=== PATIENT | male | born 1995 | race Caucasian/White ===

== ENCOUNTER 2020-06-01 10:47 | Emergency (ER) | payer OTHER, SELFPAY ==
[2020-06-01 10:55] VITALS: BP 138/90; PULSE 65; RESP 18; TEMP 36.9; O2SAT 100
--- NOTE | 2020-06-01 11:15 | ED.SKABFB ---
HPI - Skin/Abscess/Foreign Bdy General Chief complaint: Skin/Abscess/Foreign Body Stated complaint: sore on upper thigh Time Seen by Provider: 06/01/20 11:15 Source: patient Mode of arrival: ambulatory Limitations: no limitations History of Present Illness HPI narrative: Cash Calle is a 24 yo male with no PMH except for testicular removal on right for torsion at age 4, who comes to express care for 3x3 area L upper thigh that is coalesced red spots that are pruritic - notcied 3 days ago - remains unchanged Related Data Allergies Allergy/AdvReac Type Severity Reaction Status Date / Time No Known Allergies Allergy Verified 06/01/20 11:20 Review of Systems Review of Systems: Narrative: CONSTITUTIONAL: Denies fever, chills, sweats. EYES: Denies visual changes, redness, discharge. ENT: Denies rhinorrhea, congestion, sore throat, otalgia. CARDIOVASCULAR: Denies chest pain, palpitations, edema. RESPIRATORY: Denies dyspnea, wheezing, cough GASTROINTESTINAL: Denies abdominal pain, nausea, vomiting, diarrhea. GENITOURINARY: Denies dysuria, hematuria, abnormal discharge SKIN: Denies rash or itching. 3 x 3 area that is pruritic on left upper thigh NEUROLOGIC: Denies numbness, or focal weakness. PSYCHIATRIC: Denies anxiety or depression. [facility] Past Medical History Medical History Testicular torsion Family History Family History Other No active medical problems Social History Social History (Updated 06/01/20 @ 11:26 by Cecilia Carroll CNP) Smoking status: Never smoker Alcohol intake: never Comments At time of signature, I agree with nursing past medical, surgical, social and family history. There is no relevant family history pertinent to the presenting complaint. Exam Narrative: Exam Narrative: GENERAL: This is a well-nourished, well-developed patient, in no distress. HEAD: normocephalic, atraumatic. EYES: Sclera clear/white. Vision is grossly intact. EARS: External ears normal, Hearing grossly intact. NOSE: External nose normal without nasal discharge, nares without redness, no rhinorrhea. THROAT: Mucous membranes moist, NECK: Neck supple, CARDIOVASCULAR: Regular rate and rhythm without murmurs, gallops, or rubs. RESPIRATORY: Clear to auscultation. Breath sounds equal bilaterally. No wheezes, rales, or rhonchi. GASTROINTESTINAL: Abdomen soft, SKIN: warm, intact with 3x3 red papular rash with distinct blotches on L upper thigh, no induration, is pruritic NEURO: awake, alert, and oriented to person, place and time. There were no obvious focal neurologic abnormalities. Steady gait EXTREMITIES: Normal range of motion. BACK: Nontender without deformity Course Course Emergency Course: Started on hydrocortisone/neomycin/polymixin lotion Cover area Vital Signs Vital signs: Vital Signs Temperature 98.5 F 06/01/20 10:55 Pulse Rate 65 06/01/20 10:55 Respiratory Rate 18 06/01/20 10:55 Blood Pressure 138/90 06/01/20 10:55 Pulse Oximetry 100 06/01/20 10:55 Temperature 98.5 F 06/01/20 10:55 Pulse Rate 65 06/01/20 10:55 Respiratory Rate 18 06/01/20 10:55 Blood Pressure 138/90 06/01/20 10:55 Pulse Oximetry 100 06/01/20 10:55 MDM - Skin/Abscess/Foreign Bdy Differential Diagnosis Differential diagnosis: Likely urticaria, eczema, impetigo and contact dermatitis Discharge Plan Discharge Clinical Impression: Insect bites Qualifiers: Encounter type: initial encounter Site of insect bite: thigh Qualified Code(s): S70.362A - Insect bite (nonvenomous), left thigh, initial encounter Patient Disposition: Home, Self-Care Condition: Stable Instructions: Antibiotic Form, Insect Bite or Sting (ED) Additional Instructions: Apply antibiotic steroid cream twice a day, keep covered with dry dressing Prescriptions: New [id number] 1 % oin
== END 2020-06-01 11:37 | disposition home or self-care (01) ==
PROVIDERS: Emergency Provider Nurse Practitioner
DX: S70.362A Insect bite (nonvenomous), left thigh, initial encounter (principal); W57.XXXA Bitten or stung by nonvenomous insect and other nonvenomous arthropods, initial encounter
CPT/HCPCS: 99213; G0463